=== PATIENT | male | born 1995 | race Hispanic/Latino ===

== ENCOUNTER → 2021-11-25 | Outpatient (CLI) | payer OTHER ==
[~2021-11-25] MED LIST: ACETAMINOPHEN 325 MG/10 ML UDC ONE; GADOBENATE DIMEGLUMINE 1 ML IV ONE; MIDAZOLAM HCL 2 MG/2 ML VIAL ONE; SODIUM CHLORIDE 0.9% 500ML 500 ML ONE
== END ==
LOC: MRI 08:15
PROVIDERS: ATTEND Internal Medicine Gastroenterology
DX: R10.84 Generalized abdominal pain (principal)
CPT/HCPCS: 72197; 74185; J2250; J7040